=== PATIENT | female | born 1980 | race Caucasian/White ===

== ENCOUNTER 2016-12-18 16:31 | Emergency (ER) | payer OTHER ==
[2016-12-18 16:50] VITALS: BP 114/84; PULSE 94; TEMP 98.2; BMI 24.5
--- NOTE | 2016-12-18 17:10 | PDOC ---
History of Present Illness - History of Present Illness Initial Comments: 12/18/16 17:40 Patient is a 36 year old female with significant medical hx of angina who is presenting to the ED with three days of chest pain. Patient reports chest pain that only occurs while lying flat, at rest, between the hours of 1 AM - 3 AM. She notes some radiation to her neck and jaw. The patient states that her chest pain relieves with some deep breaths. Patient also complains of associated right upper extremity numbness and weakness. She endorses some generalized weakness as well. Denies any diaphoresis, shortness of breath, palpitations, nausea, or vomiting. Surgical Hx: Cholecystectomy, , tummy tuck PMD: Laura Gibson MD <Rubi Brown - Last Filed: 12/18/16 17:59> <Marcio Vick - Last Filed: 12/18/16 23:49> - General Chief Complaint: Chest Pain Stated Complaint: CHEST PAIN Time Seen by Provider: 12/18/16 17:09 Past History <Rubi Brown - Last Filed: 12/18/16 17:59> - Past Medical History Other medical history: denies - Surgical History Cholecystectomy: Yes - Psycho/Social/Smoking Cessation Hx Anxiety: No Suicidal Ideation: No Smoking History: Never smoked Information on smoking cessation initiated: No Hx Alcohol Use: No Drug/Substance Use Hx: No Substance Use Type: None <Marcio Vick - Last Filed: 12/18/16 23:49> - Past Medical History Allergies/Adverse Reactions: Allergies Allergy/AdvReac Type Severity Reaction Status Date / Time No Known Allergies Allergy Verified 12/18/16 16:46 Home Medications: Ambulatory Orders NK [No Known Home Medication] 12/18/16 Review of Systems - Review of Systems Comments:: 12/18/16 17:41 GENERAL/CONSTITUTIONAL: Generalize weakness. No fever or chills. HEAD, EYES, EARS, NOSE AND THROAT: No change in vision. No ear pain or discharge. No sore throat. CARDIOVASCULAR: Chest pain. No shortness of breath. RESPIRATORY: No cough, wheezing, or hemoptysis. GASTROINTESTINAL: No nausea, vomiting, diarrhea or constipation. GENITOURINARY: No dysuria, frequency, or change in urination. MUSCULOSKELETAL: No joint or muscle swelling or pain. No neck or back pain. SKIN: No rash NEUROLOGIC: Right upper extremity numbness and weakness. No headache, vertigo, or loss of consciousness. <Rubi Brown - Last Filed: 12/18/16 17:59> *Physical Exam - Vital Signs Last Vital Signs Temp Pulse Resp BP Pulse Ox 98.2 F 94 H 20 114/84 99 12/18/16 16:46 12/18/16 16:46 12/18/16 16:46 12/18/16 16:46 12/18/16 16:46 - Physical Exam Comments: 12/18/16 17:42 GENERAL: Awake, alert, and fully oriented, in no acute distress HEAD: No signs of trauma EYES: PERRLA, EOMI, sclera anicteric, conjunctiva clear ENT: Auricles normal inspection, hearing grossly normal, nares patent, oropharynx clear without exudates. Moist mucosa NECK: Normal ROM, supple, no lymphadenopathy, JVD, or masses LUNGS: Breath sounds equal, clear to auscultation bilaterally. No wheezes, and no crackles HEART: Regular rate and rhythm, normal S1 and S2, no murmurs, rubs or gallops ABDOMEN: Soft, nontender, normoactive bowel sounds. No guarding, no rebound. No masses EXTREMITIES: Normal range of motion, no edema. No clubbing or cyanosis. No cords, erythema, or tenderness NEUROLOGICAL: Cranial nerves II through XII grossly intact. Normal speech, normal gait SKIN: Warm, Dry, normal turgor, no rashes or lesions noted. ENDOCRINE: No increased thirst. No abnormal weight change. HEMATOLOGIC/LYMPHATIC: No anemia, easy bleeding, or history of blood clots. ALLERGIC/IMMUNOLOGIC: No hives or skin allergy. <Stephanie,Rubi - Last Filed: 12/18/16 17:59> - Vital Signs Last Vital Signs Temp Pulse Resp BP Pulse Ox 98.2 F 94 H 20 114/84 99 12/18/16 16:46 12/18/16 16:46 12/18/16 16:46 12/18/16 16:46 12/18/16 16:46 <Marcio Vick - Last Filed: 12/18/16 23:49> Heart Score/ECG Review #1 12/18/16 17:59 Normal sinus rhythm at 83 bpm Normal ECG <Rubi Brown - Last Filed: 12/18/16 17:59> ED Treatment Course - LABORATORY CBC & Chemistry Diagram: 12/18/16 17:40 12/18/16 17:40 <Balwinder Browna - Last Filed: 12/18/16 17:59> - LABORATORY CBC & Chemistry Diagram: 12/18/16 17:40 12/18/16 17:40 <Marcio Vick - Last Filed: 12/18/16 23:49> *DC/Admit/Observation/Transfer - Attestations Scribe Attestion: 12/18/16 17:42 Documentation prepared by Rubi Brown, acting as medical oncology physician for Marcio Vick MD. <Balwinder Browna - Last Filed: 12/18/16 17:59> - Attestations Physician Attestion: 12/18/16 17:09 I, Dr. Marcio Vick, attest that this document has been prepared under my direction and personally reviewed by me in its entirety. I further attest, that it accurately reflects all work, treatment, procedures and medical decision -making performed by me. <Marcio Vick - Last Filed: 12/18/16 23:49> Diagnosis at time of Disposition: Atypical chest pain, Gastroesophageal reflux disease with esophagitis - Referrals Referrals: Laura Covington MD [Primary Care Provider] - Ramiro Nieto MD [Staff Physician] - Bruce Lafleur DO [Staff Physician] - - Patient Instructions Printed Discharge Instructions: DI for Atypical Chest Pain, DI for Gastroesophageal Reflux Disease (GERD), GERD Diet Additional Instructions: Jennifer - All of your testing tonight was negative. Please make follow up appointments with both cardiology and gastroenterology. Talk with your primary care doctor about possible medications to help you with your discomfort. Return to us if worse or new symptoms occur. Best- Dr. Marcio Vick
[2016-12-18 17:58] LABS: BASOPHIL 0.5 % (0-2.0); EOSINOPHIL 1.3 % (0-4.5); MCH 30.9 pg (25.7-33.7); MCHC 33.9 g/dl (32.0-36.0); MEAN CELL VOLUME 90.9 fl (80-96); MEAN PLT VOLUME 8.8 fl (7.5-11.1); NEUTROPHILS 61.1 % (42.8-82.8); PLATELET COUNT 308 K/MM3 (134-434); RDW 13.1 % (11.6-15.6); WHITE BLOOD COUNT 8.6 K/mm3 (4.0-10.0)
[2016-12-18 19:41] LABS: INR 1.05 (0.82-1.09); PROTHROMBIN TIME (PATIENT) 11.6 SEC (9.98-11.88)
[2016-12-18 20:31] LABS: ALBUMIN 4.1 g/dl (3.4-5.0); ANION GAP 10 (8-16); BILIRUBIN,TOTAL 0.3 mg/dL (0.2-1.0); CALCIUM 8.9 mg/dL (8.5-10.1); CO2 25 mmol/L (21-32); CREATININE 0.6 mg/dL (0.55-1.02); GLUCOSE,RANDOM 77 mg/dL (74-106); MAGNESIUM 2.1 mg/dL (1.8-2.4); SGOT/AST 16 U/L (15-37); SGPT/ALT 19 U/L (12-78); TOT PROT 7.8 g/dl (6.4-8.2)
[2016-12-18 20:33] LABS: ALK PHOS 83 U/L (45-117); TROPONIN I < 0.02 ng/ml (0.00-0.05)
[2016-12-18 23:20] LABS: TROPONIN I < 0.02 ng/ml (0.00-0.05)
--- NOTE | 2016-12-19 10:07 | EKG ---
Test Reason : Blood Pressure : / mmHG Vent. Rate : 083 BPM Atrial Rate : 083 BPM P-R Int : 146 ms QRS Dur : 088 ms QT Int : 368 ms P-R-T Axes : 053 017 000 degrees QTc Int : 432 ms NORMAL SINUS RHYTHM WITH SINUS ARRHYTHMIA NONSPECIFIC ST ABNORMALITY NO PREVIOUS ECGS AVAILABLE Confirmed by AMALIA COKER MD ([id number]) on 12/19/2016 10:07:15 AM Referred By: Confirmed By:AMALIA COKER MD
== END 2016-12-19 00:06 | disposition home or self-care (01) ==
LOC: JER 16:31
DX: K21.0 Gastro-esophageal reflux disease with esophagitis (principal)
CPT/HCPCS: 36415; 71020-TC; 71275-TC; 80053; 82550; 83690; 83735; 84484; 84703; 85025; 85379; 85610; 93005; 93010; 99283-25

== ENCOUNTER 2017-03-30 14:16 | Emergency (ER) | payer OTHER ==
[2017-03-30 14:21] VITALS: BP 133/89; PULSE 85; TEMP 97.9; BMI 24.5
[2017-03-30] MEDS ORDERED: PENICILLIN G BENZATHINE 2,400,000 UNIT/4 ML PFS ONE (15:30)
[2017-03-30] MEDS ORDERED: PENICILLIN G BENZATHINE 1,200,000 UNIT/2 ML PFS IM ONE (15:34)
--- NOTE | 2017-03-30 15:37 | PDOC ---
History of Present Illness - General History Source: Patient Exam Limitations: No Limitations - History of Present Illness Initial Comments: 03/30/17 15:43 The patient is a 36 year old female, with no significant past medical history who presents to the emergency department with intermittent sore throat for the past 10 days.Patient reports associated L ear ache, congestion and enlarged lymph nodes worse on the L than R. Patient states her family members gave her amoxicillin however denies any relief. Patient denies fever, chills. Patient denies any abdominal pain, nausea or vomiting. Patient denied any sick contacts or recent illnesses. Allergies: NKA Surgical Hx: Tubal ligation <Cherise Osborn - Last Filed: 03/30/17 15:43> - General History Source: Patient Exam Limitations: No Limitations <Aure Tavera - Last Filed: 03/31/17 16:58> - General Chief Complaint: Sore Throat Stated Complaint: THROAT PAIN Time Seen by Provider: 03/30/17 15:00 Past History <Cherise Osborn - Last Filed: 03/30/17 15:43> - Past Medical History Other medical history: NONE - Surgical History Cholecystectomy: Yes - Psycho/Social/Smoking Cessation Hx Anxiety: No Suicidal Ideation: No Smoking History: Never smoked Have you smoked in the past 12 months: No Information on smoking cessation initiated: No Hx Alcohol Use: No Drug/Substance Use Hx: No Substance Use Type: None <Aure Tavera - Last Filed: 03/31/17 16:58> - Past Medical History Allergies/Adverse Reactions: Allergies Allergy/AdvReac Type Severity Reaction Status Date / Time No Known Allergies Allergy Verified 03/30/17 14:18 Home Medications: Ambulatory Orders NK [No Known Home Medication] 12/18/16 Review of Systems - Review of Systems Able to Perform ROS?: Yes Comments:: 03/30/17 15:44 CONSTITUTIONAL: Absent: fever, no chills, no fatigue EYES: Absent: visual changes ENT: + L ear pain. + sore throat. RESPIRATORY: +nasal congestion. Absent: cough, no SOB GI: Absent: abdominal pain, no nausea, no vomiting, no constipation, no diarrhea SKIN: Absent: rash <Cherise Osborn - Last Filed: 03/30/17 15:43> *Physical Exam - Vital Signs Last Vital Signs Temp Pulse Resp BP Pulse Ox 97.9 F 85 18 133/89 100 03/30/17 14:19 03/30/17 14:19 03/30/17 14:19 03/30/17 14:19 03/30/17 14:19 - Physical Exam Comments: 03/30/17 15:45 GENERAL: Well-appearing, well-nourished. No apparent distress. HEENT: +Tender bilateral lymphadenopathy. +beefy red swollen tonsils with greyish exudates. +Mild sinus tenderness. Normocephalic, atraumatic. PERRL, EOM intact. Airway patent. PULMONARY: Clear to auscultation bilaterally. ABDOMEN: Soft, non-distended, non-tender. SKIN: Warm, dry. No rash <Cherise Osborn - Last Filed: 03/30/17 15:43> - Vital Signs Last Vital Signs Temp Pulse Resp BP Pulse Ox 97.9 F 85 18 133/89 100 03/30/17 14:19 03/30/17 14:19 03/30/17 14:19 03/30/17 14:19 03/30/17 14:19 <Aure Tavera - Last Filed: 03/31/17 16:58> ED Treatment Course - Medications Given in the ED: ED Medications Discontinued Medications Generic Name Dose Route Start Last Admin Trade Name Benji PRN Reason Stop Dose Admin Penicillin G Benzathine 1,200,000 unit 03/30/17 15:34 03/30/17 15:38 Bicillin L-A - IM 03/30/17 15:35 1,200,000 unit ONCE ONE Administration <Cherise Osborn - Last Filed: 03/30/17 15:43> Medical Decision Making - Medical Decision Making 03/30/17 15:45 Bicillin 1.2 million units IM Observe for 30 minutes Discharge home if nonreactive <Cherise Osborn - Last Filed: 03/30/17 15:43> - Medical Decision Making 03/31/17 16:58 The scribe's documentation has been prepared under my direction and personally reviewed by me in its entirety. I confirm that the note above accurately reflects all work, treatment, procedures, and medical decision making performed by me. <Aure Tavera - Last Filed: 03/31/17 16:58> *DC/Admit/Observation/Transfer - Attestations Scribe Attestion: 03/30/17 15:45 Documentation prepared by Cherise Osborn, acting as medical detailist for Aure Stubbs NP <Cherise Osborn - Last Filed: 03/30/17 15:43> - Discharge Dispostion Admit: No <Aure Tavera - Last Filed: 03/31/17 16:58> Diagnosis at time of Disposition: Pharyngitis Qualifiers: Pharyngitis/tonsillitis etiology: unspecified etiology Qualified Code(s): J02.9 - Acute pharyngitis, unspecified - Discharge Dispostion Disposition: HOME Condition at time of disposition: Stable - Referrals Referrals: Laura Covington MD [Primary Care Provider] - - Patient Instructions Printed Discharge Instructions: DI for Pharyngitis/Tonsillopharyngitis -- Adult Additional Instructions: Rest, drink lots of fluids: Teas, water, soups Eat cold things: Ice cream, ice pops, ice chips Saltwater gargles Steamy showers/seem to face break up mucus Avoid contact with others until fevers and pain resolved Lots of handwashing and good hygiene, this is contagious You have been treated with Bicillin LA 1.2 million units injection which is a one-time treatment for strep pharyngitis. You will not need to take any further antibiotics. Tylenol or Motrin for fever and pain Followup with private physician in one to 2 days as needed if not improving Return to emergency department for worsened symptoms, fevers, dehydration - Post Discharge Activity Work/School Note: Back to Work
== END 2017-03-30 16:14 | disposition home or self-care (01) ==
LOC: JERFT 14:16
DX: J02.9 Acute pharyngitis, unspecified (principal)
CPT/HCPCS: 96372; 99281-25

== ENCOUNTER 2018-01-04 23:09 | Emergency (ER) | payer OTHER ==
[2018-01-04 23:24] VITALS: BP 145/83; PULSE 89; TEMP 98.4; BMI 24.7
--- NOTE | 2018-01-05 02:56 | PDOC ---
History of Present Illness - General Chief Complaint: Pain Stated Complaint: PAIN Time Seen by Provider: 01/05/18 02:09 History Source: Patient Exam Limitations: No Limitations - History of Present Illness Initial Comments: 01/05/18 03:03 Best Contact: Pmhx: N/A Pshx: : , 2014: Laparoscopic cholecystectomy 2017: : Abdominoplasty Allergies: NKDA 37-year-old female presents to the emergency department complaining of right lower quadrant abdominal discomfort. Pain is described as 5/10 dull nonradiating intermittent discomfort. Patient denies nausea/vomiting, fever/ chills, chest pain, shortness of breath, flank pains, urinary symptoms: Frequency/urgency/hesitancy, hematuria. The pain is exacerbated on touch and alleviated at rest. Patient denied similar symptoms in the past. Past History - Past Medical History Allergies/Adverse Reactions: Allergies Allergy/AdvReac Type Severity Reaction Status Date / Time No Known Allergies Allergy Verified 01/04/18 23:24 Home Medications: Ambulatory Orders NK [No Known Home Medication] 12/18/16 - Surgical History Cholecystectomy: Yes - Suicide/Smoking/Psychosocial Hx Smoking History: Never smoked Have you smoked in the past 12 months: No Information on smoking cessation initiated: No Hx Alcohol Use: No Drug/Substance Use Hx: No Substance Use Type: None Review of Systems - Review of Systems Able to Perform ROS?: Yes Comments:: 01/05/18 02:59 CONSTITUTIONAL: Absent: fever, chills, diaphoresis, generalized weakness, malaise, loss of appetite HEENT: Absent: rhinorrhea, nasal congestion, throat pain, throat swelling, difficulty swallowing, mouth swelling, ear pain, eye pain, visual Changes CARDIOVASCULAR: Absent: chest pain, loss of consciousness, palpitations, irregular heart rate, peripheral edema RESPIRATORY: Absent: cough, shortness of breath, dyspnea with exertion, orthopnea, wheezing, stridor, hemoptysis GASTROINTESTINAL: +RLQ pain Absent: abdominal distension, nausea, vomiting, diarrhea, constipation, melena, hematochezia GENITOURINARY: Absent: dysuria, frequency, urgency, hesitancy, hematuria, flank pain, genital pain MUSCULOSKELETAL: Absent: myalgia, arthralgia, joint swelling SKIN: Absent: rash, itching, pallor HEMATOLOGIC/IMMUNOLOGIC: Absent: easy bleeding, easy bruising, lymphadenopathy, frequent infections Is the patient limited Telugu proficient: No *Physical Exam - Vital Signs Last Vital Signs Temp Pulse Resp BP Pulse Ox 98.4 F 89 18 145/83 97 01/04/18 23:19 01/04/18 23:19 01/04/18 23:19 01/04/18 23:19 01/04/18 23:19 - Physical Exam Comments: 01/05/18 03:02 GENERAL: Well developed, well nourished. Awake and alert. No acute distress. HEENT: Normocephalic, atraumatic. PERRLA, EOMI. No conjunctival pallor. Sclera are non- icteric. Moist mucous membranes. Oropharynx is clear. NECK: Supple. Full ROM. No JVD. Carotid pulses 2+ and symmetric, without bruits. No thyromegaly. No lymphadenopathy. CARDIOVASCULAR: Regular rate and rhythm. No murmurs, rubs, or gallops. Distal pulses are 2+ and symmetric. PULMONARY: No evidence of respiratory distress. Lungs clear to auscultation bilaterally. No wheezing, rales or rhonchi. ABDOMINAL: +RLQ pain on palp Soft. Non-distended. No rebound or guarding. No organomegaly. Normoactive bowel sounds. MUSCULOSKELETAL Normal range of motion at all joints. No bony deformities or tenderness. No CVA tenderness. EXTREMITIES: No cyanosis. No clubbing. No edema. No calf tenderness. SKIN: Warm and dry. Normal capillary refill. No rashes. No jaundice. ED Treatment Course - LABORATORY CBC & Chemistry Diagram: 01/05/18 03:39 01/05/18 03:39 Progress Note - Progress Note Progress Note: Signed out to Dr. Eldon Collier Re-eval and reveal CT abd/pelvis with po/iv contrast
[2018-01-05] MEDS ORDERED: SODIUM CHLORIDE 1,000 ML IV STA (02:58)
[2018-01-05 03:50] LABS: EOS % 3.3 % (0-4.5); HEMOGLOBIN 12.6 GM/dL (10.7-15.3); LYMPH % 51.9 % (8-40); MCH 31.4 pg (25.7-33.7); MCHC 34.8 g/dl (32.0-36.0); MEAN CELL VOLUME 90.1 fl (80-96); MEAN PLT VOLUME 8.6 fl (7.5-11.1); MONO % 5.2 % (3.8-10.2); NEUT % 38.6 % (42.8-82.8); PLATELET COUNT 313 K/MM3 (134-434); RDW 13.3 % (11.6-15.6); WHITE BLOOD COUNT 6.2 K/mm3 (4.0-10.0)
[2018-01-05 04:13] LABS: ALBUMIN 3.7 g/dl (3.4-5.0); ALK PHOS 93 U/L (45-117); ANION GAP 9 (8-16); BILIRUBIN,TOTAL 0.3 mg/dL (0.2-1.0); BLOOD UREA NITROGEN 9 mg/dL (7-18); CALCIUM 9.3 mg/dL (8.5-10.1); CHLORIDE 108 mmol/L (98-107); CO2 24 mmol/L (21-32); CREATININE 0.6 mg/dL (0.55-1.02); GLUCOSE,RANDOM 89 mg/dL (74-106); SGOT/AST 18 U/L (15-37); SGPT/ALT 16 U/L (12-78); SODIUM 141 mmol/L (136-145); TOT PROT 7.1 g/dl (6.4-8.2)
--- NOTE | 2018-01-05 06:41 | PDOC ---
*Physical Exam - Vital Signs Last Vital Signs Temp Pulse Resp BP Pulse Ox 98.4 F 89 18 145/83 97 01/04/18 23:19 01/04/18 23:19 01/04/18 23:19 01/04/18 23:19 01/04/18 23:19 ED Treatment Course - LABORATORY CBC & Chemistry Diagram: 01/05/18 03:39 01/05/18 03:39 - ADDITIONAL ORDERS Additional order review: Laboratory Results 01/05/18 01/05/18 03:39 03:39 Sodium 141 Potassium 4.0 Chloride 108 H Carbon Dioxide 24 Anion Gap 9 BUN 9 Creatinine 0.6 Creat Clearance w eGFR > 60 Random Glucose 89 Calcium 9.3 Total Bilirubin 0.3 AST 18 ALT 16 Alkaline Phosphatase 93 Total Protein 7.1 Albumin 3.7 Urine HCG, Qual Negative 01/05/18 03:39 RBC 4.00 MCV 90.1 MCHC 34.8 RDW 13.3 MPV 8.6 Neutrophils % 38.6 L D Lymphocytes % 51.9 H D Monocytes % 5.2 Eosinophils % 3.3 D Basophils % 1.0 - RADIOLOGY Radiology Studies Ordered: Category Date Time Status ABDOMEN & PELVIS CT WITH CONTR [CT] Stat CT Scan 01/05/18 05:33 Taken - Medications Given in the ED: ED Medications Discontinued Medications Generic Name Dose Route Start Last Admin Trade Name Benji PRN Reason Stop Dose Admin Sodium Chloride 1,000 mls @ 1,000 mls/hr 01/05/18 02:58 01/05/18 03:41 Normal Saline - IV 01/05/18 03:57 1,000 mls/hr ASDIR STA Administration *DC/Admit/Observation/Transfer Diagnosis at time of Disposition: Abdominal pain - Discharge Dispostion Disposition: HOME Admit: No - Referrals - Patient Instructions Printed Discharge Instructions: DI for Abdominal Pain-Adult Additional Instructions: Follow up with your primary care provider within 2-3 days. Come back to the ER for any new, worsening or concerning symptoms. - Post Discharge Activity
== END 2018-01-05 06:52 | disposition home or self-care (01) ==
LOC: JER 23:09
PROC: 3E0337Z Introduction of Electrolytic and Water Balance Substance into Peripheral Vein, Percutaneous Approach (ICD-10-PCS; principal; 2018-01-04)
DX: R10.31 Right lower quadrant pain (principal); Z90.49 Acquired absence of other specified parts of digestive tract
CPT/HCPCS: 36415; 74177-TC; 80053; 84703; 85025; 87086; 96360; 99283-25; J7030

== ENCOUNTER 2018-10-09 19:46 | Emergency (ER) | payer OTHER ==
[2018-10-09 19:50] VITALS: TEMP 98; BMI 29.2
[2018-10-09] MEDS ORDERED: ONDANSETRON 4 MG/2 ML VIAL IVPUSH ONE (20:47)
[2018-10-09] MEDS ORDERED: morphine CARPU-JECT 4 MG/1 ML DISP.SYRIN IVPUSH ONE ×2 (20:47→22:14)
[2018-10-09] MEDS ORDERED: SODIUM CHLORIDE 1,000 ML IV STA (20:47)
--- NOTE | 2018-10-09 21:02 | PDOC ---
Attending Attestation - HPI HPI: 10/09/18 23:37 Patient is a 38 year old female with prominent surgical history of , cholecystectomy, and tummy tuck/liposuction who presents to the ED with complaints of abdominal pain since 4 pm today. She reports a dull cramp in her right lower quadrant with associated nausea, vomiting, and diarrhea. She denies any associated fevers, chills, cough, SOB, chest pain, or urinary complaints. Denies any vaginal discharge or bleeding. - Physicial Exam PE: 10/09/18 23:37 GENERAL: Awake, alert, and fully oriented, in no acute distress LUNGS: Breath sounds equal, clear to auscultation bilaterally. HEART: Regular rate and rhythm, normal S1 and S2 ABDOMEN: Soft, (+) RLQ tenderness on palpation, normoactive bowel sounds. No guarding, no rebound. No masses EXTREMITIES: Normal range of motion, no edema. No clubbing or cyanosis. No cords, erythema, or tenderness NEUROLOGICAL: Cranial nerves II through XII grossly intact. Normal speech SKIN: Warm, Dry, normal turgor, no rashes or lesions noted. - Medical Decision Making 10/09/18 23:38 Documentation prepared by Stacey Stern, acting as medical claims examiner for Rossy Irvin MD. <Stacey Stern - Last Filed: 10/09/18 23:37> - Resident Resident Name: Jus Billy - ED Attending Attestation I have performed the following: I have examined & evaluated the patient, The case was reviewed & discussed with the resident, I agree w/resident's findings & plan, Exceptions are as noted - Medical Decision Making Pt presents with RLQ pain, nausea and vomiting No vaginal pain or discharge No fevers or chills 10/10/18 01:46 Laboratory Tests 10/09/18 10/09/18 10/09/18 21:10 21:10 21:10 WBC 5.8 Hgb 13.6 Hct 39.4 Plt Count 347 Neutrophils % 50.4 D Lymphocytes % 40.2 H D Sodium 140 Potassium 4.3 Chloride 107 Carbon Dioxide 26 BUN 8 Creatinine 0.6 Random Glucose 84 Total Bilirubin 0.2 AST 17 ALT 22 Lipase 178 Serum , Qual Negative Urine Nitrite Urine Bilirubin Ur Leukocyte Esterase 10/10/18 01:28 WBC Hgb Hct Plt Count Neutrophils % Lymphocytes % Sodium Potassium Chloride Carbon Dioxide BUN Creatinine Random Glucose Total Bilirubin AST ALT Lipase Serum , Qual Urine Nitrite Negative Urine Bilirubin Negative Ur Leukocyte Esterase Negative 10/10/18 01:46 CT: no evidence of appendicitis No evidence of colitis Will plan to discharge to home Follow up with PMD <Rossy Irvin - Last Filed: 10/10/18 01:49>
[2018-10-09] MEDS ORDERED: morphine SULFATE 4 MG/ML VIAL ONE ×2 (21:08→22:15)
[2018-10-09] MEDS ORDERED: ONDANSETRON 4 MG/2 ML VIAL ONE (21:08)
--- NOTE | 2018-10-09 21:09 | PDOC ---
History of Present Illness - General Chief Complaint: Pain Stated Complaint: ABDOMINAL/BACK PAIN Time Seen by Provider: 10/09/18 20:42 History Source: Patient Exam Limitations: No Limitations - History of Present Illness Initial Comments: 10/09/18 21:16 Patient is a 38F with history of c-sections and cholecystectomy here today complaining of RLQ abdominal pain, vomiting and diarrhea that started today. Patient reports no sick contacts. Denies blood in vomit and diarrhea. Denies dysuria, last bowel movement today. Denies vaginal pain and vaginal discharge. Denies chest pain and shortness of breath. Past History - Past Medical History Allergies/Adverse Reactions: Allergies Allergy/AdvReac Type Severity Reaction Status Date / Time No Known Allergies Allergy Verified 10/09/18 19:49 Home Medications: Ambulatory Orders NK [No Known Home Medication] 12/18/16 COPD: No - Surgical History Cholecystectomy: Yes - Suicide/Smoking/Psychosocial Hx Smoking History: Never smoked Have you smoked in the past 12 months: No Hx Alcohol Use: No Drug/Substance Use Hx: No Substance Use Type: None Review of Systems - Review of Systems Comments:: 10/09/18 21:21 GENERAL/CONSTITUTIONAL: No fever or chills. No weakness. HEAD, EYES, EARS, NOSE AND THROAT: No change in vision. No sore throat. CARDIOVASCULAR: No chest pain or shortness of breath RESPIRATORY: No cough, wheezing, or hemoptysis. GASTROINTESTINAL: +nausea, +vomiting, +diarrhea no constipation. GENITOURINARY: No dysuria, frequency, or change in urination. MUSCULOSKELETAL: No joint or muscle swelling or pain. No neck or back pain. SKIN: No rash NEUROLOGIC: No headache, vertigo, loss of consciousness, or change in strength/ sensation. ALLERGIC/IMMUNOLOGIC: No hives or skin allergy. *Physical Exam - Vital Signs Last Vital Signs Temp Pulse Resp BP Pulse Ox 98.0 F 90 18 147/90 98 10/09/18 19:47 10/09/18 19:47 10/09/18 19:47 10/09/18 19:47 10/09/18 19:47 - Physical Exam Comments: 10/09/18 21:21 GENERAL: Awake, alert, and fully oriented, in no acute distress HEAD: No signs of trauma, normocephalic, atraumatic EYES: PERRLA, EOMI, sclera anicteric, conjunctiva clear ENT: Auricles normal inspection, hearing grossly normal, nares patent, oropharynx clear without exudates. Moist mucosa NECK: Normal ROM, supple, no lymphadenopathy, JVD, or masses LUNGS: No distress, speaks full sentences, clear to auscultation bilaterally HEART: Regular rate and rhythm, normal S1 and S2, no murmurs, rubs or gallops, peripheral pulses normal and equal bilaterally. ABDOMEN: Soft, +RLQ tenderness, normoactive bowel sounds. No guarding, no rebound. No masses EXTREMITIES: Normal inspection, Normal range of motion, no edema. No clubbing or cyanosis. NEUROLOGICAL: Cranial nerves II through XII grossly intact. Normal speech, normal gait, no focal sensorimotor deficits SKIN: Warm, Dry, normal turgor, no rashes or lesions noted. Moderate Sedation - Procedure Monitoring Vital Signs: Procedure Monitoring Vital Signs Temperature 98.0 F 10/09/18 19:47 Pulse Rate 90 10/09/18 19:47 Respiratory Rate 18 10/09/18 19:47 Blood Pressure 147/90 10/09/18 19:47 O2 Sat by Pulse Oximetry (%) 98 10/09/18 19:47 ED Treatment Course - LABORATORY CBC & Chemistry Diagram: 10/09/18 21:10 10/09/18 21:10 - RADIOLOGY Radiology Studies Ordered: Category Date Time Status ABDOMEN & PELVIS CT WITH CONTR [CT] Stat CT Scan 10/09/18 20:50 Ordered Medical Decision Making - Medical Decision Making 10/09/18 21:22 Patient is a 38F with history of cholecystectomy and here today with RLQ abdominal pain, diarrhea, vomiting. Vitals normal and stable. DDx includes, but is not limited to: appendicitis, colitis, gastroenteritis, uti. FINANCIAL ANALYST complaints considered, but believe not likely given lack of vaginal pain/ discharge with GI symptoms. 10/10/18 01:57 CBC, CMP, UA normal. CT abd/pelvis normal. Pain reassessed, improved, soft nontender/abdomen. Will discharge home with return precautions. *DC/Admit/Observation/Transfer Diagnosis at time of Disposition: Abdominal pain - Discharge Dispostion Disposition: HOME Condition at time of disposition: Good Decision to Admit order: No - Referrals - Patient Instructions Printed Discharge Instructions: DI for Abdominal Pain-Adult Additional Instructions: Please return if you have any new, worsening or concerning symptoms, especially increasing pain, fever, and vomiting. Please follow up with your primary care physician this week. - Post Discharge Activity Forms/Work/School Notes: Back to Work
[2018-10-09 21:29] LABS: EOS % 2.1 % (0-4.5); HEMATOCRIT 39.4 % (32.4-45.2); HEMOGLOBIN 13.6 GM/dL (10.7-15.3); LYMPH % 40.2 % (8-40); MCH 30.8 pg (25.7-33.7); MCHC 34.5 g/dl (32.0-36.0); MEAN CELL VOLUME 89.1 fl (80-96); MEAN PLT VOLUME 8.6 fl (7.5-11.1); MONO % 6.3 % (3.8-10.2); NEUT % 50.4 % (42.8-82.8); PLATELET COUNT 347 K/MM3 (134-434); RBC 4.42 M/mm3 (3.60-5.2); RDW 13.6 % (11.6-15.6); WHITE BLOOD COUNT 5.8 K/mm3 (4.0-10.0)
[2018-10-09 21:51] LABS: ALK PHOS 99 U/L (45-117); ANION GAP 7 MMOL/L (8-16); BILIRUBIN,TOTAL 0.2 mg/dL (0.2-1); BLOOD UREA NITROGEN 8 mg/dL (7-18); CALCIUM 9.4 mg/dL (8.5-10.1); CHLORIDE 107 mmol/L (98-107); CO2 26 mmol/L (21-32); CREATININE 0.6 mg/dL (0.55-1.3); GLUCOSE,RANDOM 84 mg/dL (74-106); LIPASE 178 U/L (73-393); POTASSIUM 4.3 mmol/L (3.5-5.1); SGOT/AST 17 U/L (15-37); SGPT/ALT 22 U/L (13-61); SODIUM 140 mmol/L (136-145); TOT PROT 7.9 g/dl (6.4-8.2)
[2018-10-10 01:35] LABS: URINE APPEARANCE CLEAR; URINE BILIRUBIN NEGATIVE (<2.0 mg/dL); URINE COLOR LTYELLOW; URINE GLUCOSE (UA) NEGATIVE (NEGATIVE); URINE KETONE NEGATIVE (NEGATIVE); URINE LEUK ESTERASE NEGATIVE (NEGATIVE); URINE NITRITE NEGATIVE (NEGATIVE); URINE PROTEIN NEGATIVE (NEGATIVE); URINE UROBILINOGEN NEGATIVE mg/dL (0.2-1.0)
[2018-10-10 01:46] LABS: EPI CELLS RARE /HPF (FEW)
[2018-10-10 02:27] VITALS: BP 132/84; PULSE 82
== END 2018-10-10 01:57 | disposition home or self-care (01) ==
LOC: JER 19:46
PROC: 3E033NZ Introduction of Analgesics, Hypnotics, Sedatives into Peripheral Vein, Percutaneous Approach (ICD-10-PCS; principal; 2018-10-09)
PROC: 3E033GC Introduction of Other Therapeutic Substance into Peripheral Vein, Percutaneous Approach (ICD-10-PCS; 2018-10-09)
DX: R10.31 Right lower quadrant pain (principal)
CPT/HCPCS: 36415; 74177-TC; 80053; 81003; 81015; 83690; 84703; 85025; 96374; 96375; 96376; 99284-25; J7030

== ENCOUNTER 2018-10-26 14:13 | Emergency (ER) | payer OTHER ==
[2018-10-26 14:33] VITALS: BP 112/67; PULSE 99; TEMP 98; BMI 28.3
--- NOTE | 2018-10-26 15:01 | PDOC ---
History of Present Illness - General Chief Complaint: Pain Stated Complaint: FEVER/HEADACHE Time Seen by Provider: 10/26/18 15:01 Past History - Past Medical History Allergies/Adverse Reactions: Allergies Allergy/AdvReac Type Severity Reaction Status Date / Time No Known Allergies Allergy Verified 10/09/18 19:49 Home Medications: Ambulatory Orders NK [No Known Home Medication] 12/18/16 COPD: No - Surgical History Cholecystectomy: Yes - Suicide/Smoking/Psychosocial Hx Smoking History: Never smoked Have you smoked in the past 12 months: No Hx Alcohol Use: No Drug/Substance Use Hx: No Substance Use Type: None *Physical Exam - Vital Signs Last Vital Signs Temp Pulse Resp BP Pulse Ox 98 F 99 H 20 112/67 99 10/26/18 14:30 10/26/18 14:30 10/26/18 14:30 10/26/18 14:30 10/26/18 14:30 Moderate Sedation - Procedure Monitoring Vital Signs: Procedure Monitoring Vital Signs Temperature 98 F 10/26/18 14:30 Pulse Rate 99 H 10/26/18 14:30 Respiratory Rate 20 10/26/18 14:30 Blood Pressure 112/67 10/26/18 14:30 O2 Sat by Pulse Oximetry (%) 99 10/26/18 14:30
--- NOTE | 2018-10-26 15:18 | PDOC ---
History of Present Illness - General Chief Complaint: Pain Stated Complaint: FEVER/HEADACHE Time Seen by Provider: 10/26/18 15:01 - History of Present Illness Initial Comments: 10/26/18 15:08 38F with history of c-sections and cholecystectomy, sinusitis 2 weeks ago who presents with 2 days of nausea, nbnb vomiting and nonbloody diarrhea after eating at a new diner where she ate tomato, lettuce, and bread. She reports that she vomited approx 11 x since yesterday and started having diarrhea last night. She recorded a temp of 102F yesterday which improved with Motrin, she last took Motrin 1 hour ago. She reports that her ate the same food but did not have similar symptoms. She denies lower abdominal pain, had LNMP . She has no other complaints at bedside. Past History - Past Medical History Allergies/Adverse Reactions: Allergies Allergy/AdvReac Type Severity Reaction Status Date / Time No Known Allergies Allergy Verified 10/09/18 19:49 Home Medications: Ambulatory Orders Ondansetron [Zofran -] 4 mg PO BID #14 tablet 10/26/18 COPD: No - Surgical History Cholecystectomy: Yes - Suicide/Smoking/Psychosocial Hx Smoking History: Never smoked Have you smoked in the past 12 months: No Information on smoking cessation initiated: No Hx Alcohol Use: No Drug/Substance Use Hx: No Substance Use Type: None *Physical Exam - Vital Signs Last Vital Signs Temp Pulse Resp BP Pulse Ox 98 F 99 H 20 112/67 99 10/26/18 14:30 10/26/18 14:30 10/26/18 14:30 10/26/18 14:30 10/26/18 14:30 - Physical Exam Comments: 10/26/18 16:01 GENERAL: Awake, alert, and fully oriented, in no acute distress HEAD: No signs of trauma, normocephalic, atraumatic EYES: EOMI, sclera anicteric, conjunctiva clear ENT: oropharynx clear without exudates. Moist mucosa NECK: Normal ROM, supple, + bilateral cervical lymphadenopathy LUNGS: No distress, speaks full sentences, clear to auscultation bilaterally HEART: Regular rate and rhythm, normal S1 and S2, no murmurs, rubs or gallops, peripheral pulses normal and equal bilaterally. ABDOMEN: Soft, + LUQ tenderness to palpation, normoactive bowel sounds. No guarding, no rebound. No masses EXTREMITIES : Normal inspection, Normal range of motion, no edema. No clubbing or cyanosis. NEUROLOGICAL: Cranial nerves II through XII grossly intact. Normal speech, no focal sensorimotor deficits SKIN: Warm, Dry, normal turgor, no rashes or lesions noted Moderate Sedation - Procedure Monitoring Vital Signs: Procedure Monitoring Vital Signs Temperature 98 F 10/26/18 14:30 Pulse Rate 99 H 10/26/18 14:30 Respiratory Rate 20 10/26/18 14:30 Blood Pressure 112/67 10/26/18 14:30 O2 Sat by Pulse Oximetry (%) 99 10/26/18 14:30 ED Treatment Course - LABORATORY CBC & Chemistry Diagram: 10/26/18 15:48 10/26/18 15:48 Medical Decision Making - Medical Decision Making 10/26/18 16:26 ED Course: r/o pancreatitis vs cbc, cmp, lipase, urinalysis, upreg 10/26/18 17:43 labwork unremarkabel PO trial, if successful will discharge with zofran *DC/Admit/Observation/Transfer Diagnosis at time of Disposition: Gastroenteritis - Discharge Dispostion Disposition: HOME Condition at time of disposition: Stable Decision to Admit order: No - Prescriptions Prescriptions: Ondansetron [Zofran -] 4 mg PO BID #14 tablet - Referrals Referrals: [facility] [Provider Group] - Patient Instructions Printed Discharge Instructions: DI for Viral Gastroenteritis -- Adult Additional Instructions: You were seen in the ED for complaints of nausea, vomiting and diarrhea. In the ED you were evaluated with labwork and treated for nausea. Your results were unremarkable. There does not appear to be an acute need for immediate hospitalization. You were given a referral to the [facility], please follow up within 1 week. You were given a prescription for anti-nausea medication, Zofran. Please take as directed. Return to the ED immediately if you experience worsening diarrhea, vomiting, abdominal pain, blood in the vomit or stool, fever, chest pain or shortness of breath. Usted fue visto en el servicio de urgencias por sntomas de nuseas, vmitos y diarrea. En el servicio de urgencias, se lo evalu con un trabajo de laboratorio y recibi tratamiento para las nuseas. Nola resultados no fueron notables. No parece ezekiel raheel necesidad aguda de hospitalizacin inmediata. Recibi raheel derivacin a la [facility], por favor dereck el seguimiento dentro de 1 semana. Recibiste raheel receta para medicamentos contra las nuseas, Zofran. Por favor tome segn las indicaciones. Regrese a la claire de urgencias inmediatamente si experimenta un empeoramiento de la diarrea, vmitos, dolor abdominal, jennifer en el vmito o las heces, fiebre , dolor en el pecho o dificultad para respirar. - Post Discharge Activity
[2018-10-26] MEDS ORDERED: METOCLOPRAMIDE HCL INJECTION 10 MG/2 ML VIAL IVPUSH ONE (15:31)
[2018-10-26] MEDS ORDERED: METOCLOPRAMIDE HCL INJECTION 10 MG/2 ML VIAL ONE (15:43)
[2018-10-26] MEDS ORDERED: SODIUM CHLORIDE 1,000 ML IV SCH (15:45)
[2018-10-26] MEDS ORDERED: ACETAMINOPHEN 1000 MG/100 ML VIAL (NON FORMULARY) IVPB ONE (15:55)
[2018-10-26] MEDS ORDERED: ACETAMINOPHEN INJECTION 100 ML IVPB ONE (15:59)
--- NOTE | 2018-10-26 15:59 | PDOC ---
Attending Attestation - HPI HPI: 10/26/18 16:43 The patient is a 38 year old female, with a significant past medical history of c-sections and cholecystectomy, who presents to the emergency department with nausea, vomiting, diarrhea, and fever (102F) after eating at a new diner yesterday. She states her also ate at the diner and is not sick. She states she took Motrin for her fever prior to ED arrival. The patient denies chest pain, shortness of breath, headache and dizziness. The patient denies, chills, and constipation. The patient denies dysuria, frequency , urgency and hematuria. Allergies: NKDA Documentation prepared by Sharmila Garcia, acting as medical coding instructor for Namita King MD <Sharmila Garcia - Last Filed: 10/26/18 16:43> - Resident Resident Name: Carrie Torres - ED Attending Attestation I have performed the following: I have examined & evaluated the patient, The case was reviewed & discussed with the resident, I agree w/resident's findings & plan, Exceptions are as noted - Physicial Exam PE: GENERAL: Awake, alert, and fully oriented, in no acute distress. Well- appearing. HEAD: No signs of trauma EYES: PERRLA, EOMI, sclera anicteric, conjunctiva clear ENT: Auricles normal inspection, hearing grossly normal, nares patent, oropharynx clear without exudates. Dry mucosa NECK: Normal ROM, supple, no lymphadenopathy, JVD, or masses LUNGS: Breath sounds equal, clear to auscultation bilaterally. No wheezes, and no crackles HEART: Regular rate and rhythm, normal S1 and S2, no murmurs, rubs or gallops ABDOMEN: Soft, +LUQ tenderness, hyperactive bowel sounds. +Guarding, no rebound. No masses EXTREMITIES: Normal range of motion, no edema. No clubbing or cyanosis. No cords, erythema, or tenderness NEUROLOGICAL: Cranial nerves II through XII grossly intact. Normal speech, normal gait. Motor and sensation intact SKIN: Warm, Dry, normal turgor, no rashes or lesions noted. - Medical Decision Making Pt with N/V/D after trying a new diner last night. Will obtain labs to r/o electrolyte imbalance, give GI cocktail. Likely DC home. <Namita King - Last Filed: 10/28/18 19:22>
[2018-10-26 16:11] LABS: HCG,QUALITATIVE URINE Negative
[2018-10-26 16:26] LABS: BASO % 0.7 % (0-2.0); EOS % 1.9 % (0-4.5); HEMATOCRIT 38.7 % (32.4-45.2); HEMOGLOBIN 13.3 GM/dL (10.7-15.3); LYMPH % 23.7 % (8-40); MCH 30.4 pg (25.7-33.7); MCHC 34.3 g/dl (32.0-36.0); MEAN CELL VOLUME 88.5 fl (80-96); MEAN PLT VOLUME 9.1 fl (7.5-11.1); MONO % 3.5 % (3.8-10.2); NEUT % 70.2 % (42.8-82.8); PLATELET COUNT 317 K/MM3 (134-434); RBC 4.37 M/mm3 (3.60-5.2); RDW 13.4 % (11.6-15.6); WHITE BLOOD COUNT 6.3 K/mm3 (4.0-10.0)
[2018-10-26 16:30] LABS: ALBUMIN 3.8 g/dl (3.4-5.0); ALK PHOS 96 U/L (45-117); ANION GAP 6 MMOL/L (8-16); BILIRUBIN,TOTAL 0.4 mg/dL (0.2-1); BLOOD UREA NITROGEN 11 mg/dL (7-18); CALCIUM 8.4 mg/dL (8.5-10.1); CHLORIDE 106 mmol/L (98-107); CO2 24 mmol/L (21-32); CREATININE 0.6 mg/dL (0.55-1.3); GLUCOSE,RANDOM 79 mg/dL (74-106); POTASSIUM 3.9 mmol/L (3.5-5.1); SGOT/AST 27 U/L (15-37); SGPT/ALT 29 U/L (13-61); SODIUM 136 mmol/L (136-145); TOT PROT 7.7 g/dl (6.4-8.2)
[2018-10-26 16:42] LABS: URINE APPEARANCE CLEAR; URINE BILIRUBIN NEGATIVE (<2.0 mg/dL); URINE COLOR STRAW; URINE GLUCOSE (UA) NEGATIVE (NEGATIVE); URINE KETONE NEGATIVE (NEGATIVE); URINE LEUK ESTERASE NEGATIVE (NEGATIVE); URINE NITRITE NEGATIVE (NEGATIVE); URINE PROTEIN NEGATIVE (NEGATIVE); URINE UROBILINOGEN NEGATIVE mg/dL (0.2-1.0)
[2018-10-26 17:22] LABS: EPI CELLS RARE /HPF (FEW); URINE BACTERIA RARE /hpf (NONE SEEN)
== END 2018-10-26 18:35 | disposition home or self-care (01) ==
LOC: JER 14:13
PROC: 3E0337Z Introduction of Electrolytic and Water Balance Substance into Peripheral Vein, Percutaneous Approach (ICD-10-PCS; principal; 2018-10-26)
PROC: 3E033GC Introduction of Other Therapeutic Substance into Peripheral Vein, Percutaneous Approach (ICD-10-PCS; 2018-10-26)
PROC: 3E033NZ Introduction of Analgesics, Hypnotics, Sedatives into Peripheral Vein, Percutaneous Approach (ICD-10-PCS; 2018-10-26)
DX: K52.9 Noninfective gastroenteritis and colitis, unspecified (principal)
CPT/HCPCS: 36415; 80053; 81003; 81015; 83690; 84703; 85025; 96361; 96374; 96375; 99283-25; J0131; J7030

== ENCOUNTER 2019-06-13 16:08 | Emergency (ER) | payer OTHER | END 2019-06-13 21:01 | disposition home or self-care (01) | LOC: JER 16:08 ==

== ENCOUNTER 2019-07-10 01:23 | Emergency (ER) | payer OTHER ==
[2019-07-10 01:31] VITALS: BP 117/80; PULSE 79; TEMP 97.8; BMI 26.4
[2019-07-10] MEDS ORDERED: ACETAMINOPHEN 500 MG TABLET (FP) PO ONE (02:37)
[2019-07-10] MEDS ORDERED: ACETAMINOPHEN 325 MG TABLET (FP) ONE (02:44)
--- NOTE | 2019-07-10 03:04 | PDOC ---
History of Present Illness - General Chief Complaint: Chest Pain Stated Complaint: CHEST PAIN Time Seen by Provider: 07/10/19 02:17 History Source: Patient - History of Present Illness Initial Comments: 07/10/19 03:39 38 yo F PMH C-sections, cholecystectomy, hysterectomy, presenting after chemical inhalation. States that she was using three different cleaning agents without a mask or gloves. Complains of burning sensation with breathing, however states that this has actually been improving over time. Specifically denies CP, SOB, N/V, dizziness, MOSER. Past History - Past Medical History Allergies/Adverse Reactions: Allergies Allergy/AdvReac Type Severity Reaction Status Date / Time No Known Allergies Allergy Verified 07/10/19 01:31 COPD: No - Surgical History Cholecystectomy: Yes - Immunization History Immunization Up to Date: No - Psycho Social/Smoking Cessation Hx Smoking History: Never smoked Have you smoked in the past 12 months: No Information on smoking cessation initiated: No Hx Alcohol Use: No Drug/Substance Use Hx: No Substance Use Type: None Review of Systems - Review of Systems Constitutional: No: Chills, Diaphoresis, Fever HEENTM: No: Double Vision, Nose Pain, Throat Pain Respiratory: Yes: Other (burning sensation with breathing). No: Cough, Shortness of Breath Cardiac (ROS): No: Chest Pain, Irregular Heart Rate ABD/GI: No: Constipated, Diarrhea, Nausea, Vomiting Musculoskeletal: No: Back Pain, Neck Pain Neurological: No: Headache, Numbness, Paresthesia, Seizure, Tremors *Physical Exam - Vital Signs Last Vital Signs Temp Pulse Resp BP Pulse Ox 97.8 F 79 18 117/80 98 07/10/19 01:29 07/10/19 01:29 07/10/19 01:29 07/10/19 01:29 07/10/19 01:29 - Physical Exam Comments: 07/10/19 07:32 Gen: well-developed, well-nourished, NAD Neuro: AAOX4, CN II-XII intact, FTN intact, EOMI, PERRLA HEENT: atraumatic, normocephalic. No nasal edema Throat: no erythema or edema Neck: trachea midline, supple CV: regular rate, regular rhythm, no murmurs, rubs, or gallops Pulm: CTA b/l, no wheezing Abd: soft, non-distended, non-tender MSK: full ROM, intact pulses Extr: no edema, no deformities Skin: warm, dry ED Treatment Course - RADIOLOGY Radiology Studies Ordered: Category Date Time Status CHEST PA & LAT [RAD] Stat Radiology 07/10/19 02:37 Ordered - Medications Given in the ED: ED Medications Discontinued Medications Generic Name Dose Route Start Last Admin Trade Name Benji PRN Reason Stop Dose Admin Acetaminophen 975 mg 07/10/19 02:37 07/10/19 02:47 Tylenol - PO 07/10/19 02:38 975 mg ONCE ONE Administration Medical Decision Making - Medical Decision Making 07/10/19 07:36 Patient with improving symptoms and without any signs of chemical injury ( inability to take full breath, nasal edema or burnt hairs, peritonsillar or tonsillar edema or throat irregularities, clear lungs b/l). - CXR clear - symptoms improving - dc home Discharge - Discharge Information Problems reviewed: Yes Clinical Impression/Diagnosis: Painful breathing Condition: Good Disposition: HOME - Admission No - Follow up/Referral Referrals: Christen Bahena NP [Primary Care Provider] - - Patient Discharge Instructions Additional Instructions: You were seen after breathing some chemical supplies. Your physical exam is unconcerning, and your X ray did not show any issues. Your symptoms improved while you were in the ED. Follow up with your primary care doctor within 1 week. Return to the ED if you have worsening symptoms or difficulty breathing. - Post Discharge Activity
[2019-07-10] MEDS ORDERED: SODIUM CHLORIDE FOR INHALATION 3 ML VIAL.NEB IH ONE (03:26)
--- NOTE | 2019-07-10 03:36 | PDOC ---
Attending Attestation - Resident Resident Name: Chava Hunter - ED Attending Attestation I have performed the following: I have examined & evaluated the patient, The case was reviewed & discussed with the resident, I agree w/resident's findings & plan, Exceptions are as noted - HPI HPI: 07/10/19 03:27 38 F with no PMH presents to ED with irritation of her nose and throat. Pt states that she was cleaning using ammonia products and was in a closed bathroom. Pt now complains of pain in her nose and throat, radiating to her chest. She denies any SOB. Denies any pleuritic or exertional chest pain. - Physicial Exam PE: 07/10/19 03:36 "GENERAL: Awake, alert, and fully oriented, in no acute distress. HEAD: No signs of trauma EYES: PERRLA, EOMI, sclera anicteric, conjunctiva clear ENT: Auricles normal inspection, hearing grossly normal, nares patent, oropharynx clear without exudates. Moist mucosa NECK: Nontender, no stepoffs, Normal ROM, supple, no lymphadenopathy, JVD, or masses LUNGS: Breath sounds equal, clear to auscultation bilaterally. No wheezes, and no crackles HEART: Regular rate and rhythm, normal S1 and S2, no murmurs, rubs or gallops ABDOMEN: Soft, nontender, normoactive bowel sounds. No guarding, no rebound. No masses EXTREMITIES: Normal range of motion, no edema. No clubbing or cyanosis. No cords, erythema, or tenderness NEUROLOGICAL: Cranial nerves II through XII intact. 5/5 strength and sensation in all extremities, Normal speech, normal gait, normal cerebellar function SKIN: Warm, Dry, normal turgor, no rashes or lesions noted. - Medical Decision Making 07/10/19 03:36 38 F with irritation to her airway from chemical inhalation. Pt with stable vitals, normal O2 sat. No evidence of serious airway injury. - CXR - Saline nebulizer 07/10/19 04:06 CXR clear on my read Pt reassessed - feels better with tylenol and saline neb Pt is well appearing, with normal vitals. Clinically stable for DC at this time. I discussed the physical exam findings, ancillary test results and final diagnoses with the patient. I answered all of the patient's questions. The patient was satisfied with the care received and felt comfortable with the discharge plan and treatment plan. The patient agrees to follow up with the primary care physician within 24-72 hours.
--- NOTE | 2019-07-10 21:59 | EKG ---
Test Reason : Blood Pressure : / mmHG Vent. Rate : 074 BPM Atrial Rate : 074 BPM P-R Int : 184 ms QRS Dur : 072 ms QT Int : 402 ms P-R-T Axes : 052 027 012 degrees QTc Int : 446 ms NORMAL SINUS RHYTHM WITH SINUS ARRHYTHMIA NORMAL ECG WHEN COMPARED WITH ECG OF 13-JUN-2019 16:26, NO SIGNIFICANT CHANGE WAS FOUND Confirmed by Chelsea Dobson ([id number]) on 07/10/2019 9:58:48 PM Referred By: Confirmed By:Chelsea Dobson
== END 2019-07-10 04:20 | disposition home or self-care (01) ==
LOC: JER 01:23
PROC: 3E0F7GC Introduction of Other Therapeutic Substance into Respiratory Tract, Via Natural or Artificial Opening (ICD-10-PCS; principal; 2019-07-10)
DX: T54.3X1A Toxic effect of corrosive alkalis and alkali-like substances, accidental (unintentional), initial encounter (principal); R07.1 Chest pain on breathing; Y92.038 Other place in apartment as the place of occurrence of the external cause
CPT/HCPCS: 71046-TC-FY; 93005; 93010; 94640; 99282-25

== ENCOUNTER 2019-12-09 17:35 | Emergency (ER) | payer OTHER ==
[2019-12-09 17:42] VITALS: BP 123/81; PULSE 87; TEMP 98.1
--- NOTE | 2019-12-09 17:44 | PDOC ---
History of Present Illness - General Stated Complaint: COUGH/SOB Time Seen by Provider: 12/09/19 17:43 - History of Present Illness Initial Comments: 12/09/19 17:49 Chief complaint: fever and cough pt is a healthy 39 yo female with 2 days fever and cough. tmax 104 as per pt. took motrin this am. no fever now. does not look acutely ill. some mild headache. no neck pain. GENERAL/CONSTITUTIONAL: + fever, no: weakness HEAD, EYES, EARS, NOSE AND THROAT: No ear pain or discharge, sore throat. CARDIOVASCULAR: No chest pain RESPIRATORY: No shortness of breath +cough GASTROINTESTINAL: No pain, nausea, vomiting, diarrhea or constipation. GENITOURINARY: No dysuria MUSCULOSKELETAL: No neck or back pain SKIN: No rash NEUROLOGIC: +headache GENERAL: The patient is awake, alert, and fully oriented, in no acute distress. HEAD: Normal with no signs of trauma. EYES: Pupils equal, round and reactive to light, sclera anicteric, conjunctiva clear. ENT: pharynx: no erythema, no exudate, uvula midline NECK: supple CHEST: clear, nontender, rr ABD: soft, nontender BACK: no tenderness or signs of injury EXTREMITIES: Normal range of motion, no edema. NEUROLOGICAL: Normal speech, normal gait. SKIN: Warm, Dry 12/09/19 17:52 12/09/19 18:03 Past History - Past Medical History Allergies/Adverse Reactions: Allergies Allergy/AdvReac Type Severity Reaction Status Date / Time No Known Allergies Allergy Verified 07/10/19 01:31 Home Medications: Ambulatory Orders Oseltamivir Phosphate [Tamiflu] 75 mg PO BID #10 capsule 12/09/19 COPD: No - Surgical History Cholecystectomy: Yes - Immunization History Immunization Up to Date: No - Psycho Social/Smoking Cessation Hx Smoking History: Never smoked Have you smoked in the past 12 months: No Hx Alcohol Use: No Drug/Substance Use Hx: No Substance Use Type: None *Physical Exam - Vital Signs Last Vital Signs Temp Pulse Resp BP Pulse Ox 98.1 F 87 18 123/81 99 12/09/19 17:40 12/09/19 17:40 12/09/19 17:40 12/09/19 17:40 12/09/19 17:40 Medical Decision Making - Medical Decision Making 12/09/19 18:04 healthy 39 yo female with 2 days fever and cough, no shortness of breath. no known covid contacts or travel. pt afebrile, mild headache. minimal cough. flu swab sent. given covid information for follow up and return Discussed issues, findings, results, applicable medications and treatments and follow-up. All these were understood and all questions were answered 12/09/19 18:06 12/09/19 21:06 flu negative unable to leave message with patient Discharge - Discharge Information Problems reviewed: Yes Clinical Impression/Diagnosis: Upper respiratory infection Qualifiers: URI type: unspecified URI Qualified Code(s): J06.9 - Acute upper respiratory infection, unspecified Condition: Stable Disposition: HOME - Admission No - Additional Discharge Information Prescriptions: Oseltamivir Phosphate [Tamiflu] 75 mg PO BID #10 capsule - Follow up/Referral Referrals: Christen Bahena, [employer] [Primary Care Provider] - - Patient Discharge Instructions Patient Printed Discharge Instructions: DI for Viral Upper Respiratory Infection -- Adult Additional Instructions: Drink 2-3 L of water daily Take Tylenol 650 mg every 4 hours or Motrin 600 mg every 6 hours for fever and pain Return to the nearest ER if short of breath, unable to swallow or feeling sicker Covid-19 Symptoms and Knowing When to Stay Home and Return to Work The following is the most recent guidance from our Infection Prevention and Control team on the symptoms and duration of Covid-19, along with when to stay home from work, when you may return, and what procedures to follow when you are ready to come back. PLease call [facility] : [facility] CORONAVIRUS HOTLINE: What are the most common symptoms of Covid-19? - Muscle aches - Loss of energy and appetite - Persistent cough - Low grade fever lasting 24 hours or more, causing the person to feel feverish with chills If I have Covid-19, how long can I expect to feel sick? - Typically one week. - The majority of individuals feel better in 5 to 7 days with rest and [id number] cold and flu medications. How does illness progress in cases of Covid-19? - A few individuals progress to pneumonia (infection of the lungs) and/or pneumonitis (inflammation of the lungs). - Pneumonia/pneumonitis causes shortness of breath, worsening cough and in most cases, fever. - Individuals with the symptoms of Covid-19 who develop a worsening cough and shortness of breath must seek care quickly. If Im concerned about my symptoms or feel unwell, when must I stay home from work/ school? If you have muscle aches, cough, fatigue and low-grade fever, do not go to work/ school - Post Discharge Activity
[2019-12-09] MEDS ORDERED: IBUPROFEN 600 MG TABLET (FP) PO ONE (17:48)
== END 2019-12-09 19:22 | disposition home or self-care (01) ==
LOC: JER 17:35
DX: J06.9 Acute upper respiratory infection, unspecified (principal)
CPT/HCPCS: 87804; 99283-25

== ENCOUNTER 2019-12-12 14:14 | Emergency (ER) | payer OTHER ==
[2019-12-12 14:43] VITALS: BP 128/81; PULSE 99; TEMP 97.8; BMI 27.3
[2019-12-12] MEDS ORDERED: ACETAMINOPHEN 500 MG TABLET (FP) PO ONE (14:53)
[2019-12-12] MEDS ORDERED: ACETAMINOPHEN 500 MG TABLET (FP) ONE (14:55)
--- NOTE | 2019-12-12 15:00 | PDOC ---
History of Present Illness - General Chief Complaint: Sore Throat Stated Complaint: SORE THROAT Time Seen by Provider: 12/12/19 14:44 - History of Present Illness Initial Comments: 12/12/19 15:00 39-year-old female with sore throat x4 days associated fever at home Past History - Past Medical History Allergies/Adverse Reactions: Allergies Allergy/AdvReac Type Severity Reaction Status Date / Time No Known Allergies Allergy Verified 12/12/19 14:43 Home Medications: Ambulatory Orders Oseltamivir Phosphate [Tamiflu] 75 mg PO BID #10 capsule 12/09/19 COPD: No - Surgical History Cholecystectomy: Yes - Immunization History Immunization Up to Date: No - Psycho Social/Smoking Cessation Hx Smoking History: Never smoked Have you smoked in the past 12 months: No Information on smoking cessation initiated: No Hx Alcohol Use: No Drug/Substance Use Hx: No Substance Use Type: None Review of Systems - Review of Systems Constitutional: Yes: Fever HEENTM: Yes: Throat Pain Respiratory: No: Cough *Physical Exam - Vital Signs Last Vital Signs Temp Pulse Resp BP Pulse Ox 97.8 F 99 H 18 128/81 100 12/12/19 14:40 12/12/19 14:40 12/12/19 14:40 12/12/19 14:40 12/12/19 14:40 - Physical Exam 12/12/19 15:00 GENERAL: The patient is awake, alert, and fully oriented, in no acute distress. HEAD: Normal with no signs of trauma. EYES: sclera anicteric, conjunctiva clear. ENT: Ears normal tympanic membranes normal oropharynx clear uvula midline NECK: Normal range of motion LUNGS: Breath sounds equal, clear to auscultation bilaterally. No wheezes, and no crackles. HEART: S1 and S2 without murmur, rub or gallop. ABDOMEN: Soft, nontender, normoactive bowel sounds. No guarding, no rebound. No masses. EXTREMITIES: Normal range of motion, no edema. No clubbing or cyanosis. No cords, erythema, or tenderness. NEUROLOGICAL: Cranial nerves II through XII grossly intact. PSYCH: Normal mood, normal affect. SKIN: Warm, Dry, normal turgor, no rashes or lesions noted. ED Treatment Course - Medications Given in the ED: ED Medications Discontinued Medications Generic Name Dose Route Start Last Admin Trade Name Freq PRN Reason Stop Dose Admin Acetaminophen 1,000 mg 12/12/19 14:53 12/12/19 14:56 Tylenol - PO 12/12/19 14:54 1,000 mg ONCE ONE Administration Medical Decision Making - Medical Decision Making 12/12/19 15:00 Benign throat exam rapid strep done 12/12/19 15:30 Treatment options discussed Bicillin for strep was chosen. I have reviewed the pathophysiology with the patient. They are in agreement with the treatment plan all questions were answered to their satisfaction. Understanding for follow-up without fail was also conveyed to the patient. Again they are in agreement. Discharge - Discharge Information Problems reviewed: Yes Clinical Impression/Diagnosis: Strep pharyngitis Condition: Stable Disposition: HOME - Admission No - Follow up/Referral Referrals: Kimmy Pickett MD [Staff Physician] - - Patient Discharge Instructions Additional Instructions: You were given a one-time injection today of penicillin which will treat strep throat. You were given also a long-acting steroid. You should not require any anti-inflammatories from this point forward you may take Tylenol for pain and perform warm salt water gargles 5-6 times a day. Return to the emergency room for worsening symptoms and without fail follow-up with your primary care physician in 1 to 2 days for further evaluation and treatment options. - Post Discharge Activity
[2019-12-12] MEDS ORDERED: PENICILLIN G BENZATHINE 1,200,000 UNIT/2 ML PFS IM ONE ×2 (15:30→15:32)
[2019-12-12] MEDS ORDERED: DEXAMETHASONE LIQUID 0.5 MG/5 ML PO ONE (15:30)
[2019-12-12] MEDS ORDERED: DEXAMETHASONE SOD PHOSPHATE 10 MG/1 ML VIAL ONE (15:32)
== END 2019-12-12 15:38 | disposition home or self-care (01) ==
LOC: JERFT 14:14
DX: J02.0 Streptococcal pharyngitis (principal); B95.0 Streptococcus, group A, as the cause of diseases classified elsewhere
CPT/HCPCS: 87880; 96372; 99284-25